=== PATIENT | female | born 1940 | race Hispanic/Latino ===

== ENCOUNTER → 2017-05-06 | Outpatient (CLI) | payer OTHER | END | disposition home or self-care (01) | LOC: RAH 10:18 | PROVIDERS: ATTEND Internal Medicine | DX: Z12.31 Encounter for screening mammogram for malignant neoplasm of breast (principal) | CPT/HCPCS: 77067 ==

== ENCOUNTER → 2018-05-08 | Outpatient (CLI) | payer OTHER | END | disposition home or self-care (01) | LOC: RAH 14:22 | PROVIDERS: ATTEND Internal Medicine | DX: I77.9 Disorder of arteries and arterioles, unspecified (principal) | CPT/HCPCS: 93880 ==

== ENCOUNTER 2018-06-29 17:32 | Emergency (ER) | payer OTHER ==
[2018-06-29] MEDS ORDERED: DEXAMETHASONE SOD PHOSPHATE 10MG/ML 1ML VIAL ONE (18:32)
[2018-06-29] MEDS ORDERED: KETOROLAC TROMETHAMINE 30MG/ML ONE (18:33)
[2018-06-29] MEDS ORDERED: LIDOCAINE 5% TOPICAL PATCH TP ONE (18:33)
== END 2018-06-29 19:21 | disposition home or self-care (01) ==
LOC: EDH 17:32
DX: M54.32 Sciatica, left side (principal); I10 Essential (primary) hypertension; Z90.710 Acquired absence of both cervix and uterus
CPT/HCPCS: 93971; 96372 ×2; 99284; J1100; J1885

== ENCOUNTER → 2018-07-04 | Outpatient (CLI) | payer OTHER | END | disposition home or self-care (01) | LOC: RAH 15:50 | PROVIDERS: ATTEND Internal Medicine | DX: M48.061 Spinal stenosis, lumbar region without neurogenic claudication (principal); M25.562 Pain in left knee | CPT/HCPCS: 72100; 73562 ==

== ENCOUNTER → 2018-09-09 | Outpatient (CLI) | payer OTHER | END | disposition home or self-care (01) | LOC: RAH 08:45 | PROVIDERS: ATTEND Internal Medicine | DX: M17.12 Unilateral primary osteoarthritis, left knee (principal); S83.242A Other tear of medial meniscus, current injury, left knee, initial encounter; M22.42 Chondromalacia patellae, left knee; M25.462 Effusion, left knee; M79.89 Other specified soft tissue disorders; X58.XXXA Exposure to other specified factors, initial encounter; Y93.89 Activity, other specified; Y92.89 Other specified places as the place of occurrence of the external cause; Y99.8 Other external cause status | CPT/HCPCS: 73721 ==

== ENCOUNTER → 2019-07-02 | Outpatient (CLI) | payer OTHER | END | disposition home or self-care (01) | LOC: RAH 14:36 | PROVIDERS: ATTEND Internal Medicine | DX: Z12.31 Encounter for screening mammogram for malignant neoplasm of breast (principal) | CPT/HCPCS: 77067 ==

== ENCOUNTER 2021-05-16 06:02 | Day surgery (SDC) | payer OTHER ==
[2021-05-11 11:55] LABS: BASOPHILS % (AUTO) 0.7 % (0.0-5.0); EOSINOPHILS % (AUTO) 2.7 % (0.0-8.0); HEMATOCRIT 41.4 % (36-48); MEAN CORPUSCULAR HEMOGLOBIN 30.8 pg (27.0-33.0); MEAN CORPUSCULAR HGB CONC 32.9 g/dL (32.0-36.0); MEAN CORPUSCULAR VOLUME 93.9 fL (79-99); MONOCYTES % (AUTO) 5.5 % (3.0-13.0); NEUTROPHILS % (AUTO) 60.8 % (40.0-77.0); PLATELET COUNT (AUTO) 255 K/uL (130-400); RED BLOOD CELL COUNT(AUTO) 4.41 MIL/uL (4.00-5.50); RED CELL DISTRIBUTION WIDTH 12.8 % (11.0-15.5)
[2021-05-11 12:10] LABS: CREATININE 0.8 mg/dL (0.5-1.5); POTASSIUM 4.2 mmol/L (3.5-5.1)
[~2021-05-16] VITALS: Ht 149.9 cm; Wt 66.3 kg
[2021-05-16] VITALS (18 sets, daily range): BP systolic 112–158; BP diastolic 57–98
[~2021-05-16 06:02] MED LIST: AEC81 PO; AMIL5TAB8 PO; AMLO2.5T4 PO; CITA10TA89 PO; ERGO500093 PO; IRBE300T18 PO; METO50TA18 PO; MONT-39 PO; OXYB10TA30 PO; ROSU10TA28 PO
[2021-05-16] MEDS ORDERED: LACTATED RINGERS 1000ML 1,000 ML IV ONE (06:31)
[2021-05-16] MEDS ORDERED: BACITRACIN 28.4 GM OINT TP ONE (06:39)
[2021-05-16] MEDS ORDERED: LIDOCAINE 1%-EPI 1:100,000 20 ML VIAL IJ ONE (06:39)
[2021-05-16] MEDS ORDERED: LIDOCAINE HCL 1% 20 ML VIAL ONE (06:42)
[2021-05-16] MEDS ORDERED: EPINEPHRINE PF 1MG AMP ONE (06:42)
[2021-05-16] MEDS ORDERED: ROCURONIUM 10MG/1ML SYR 10 MG/ML ML ONE (06:59)
[2021-05-16] MEDS ORDERED: GLYCOPYRROLATE 1 MG/5 ML SYRINGE ONE (06:59)
[2021-05-16] MEDS ORDERED: PROPOFOL 10 MG/ML 20ML VIAL IV ONE (06:59)
[2021-05-16] MEDS ORDERED: FENTANYL CITRATE PF 50 MCG/1 ML 2ML VIAL ONE ×2 (06:59→07:34)
[2021-05-16] MEDS ORDERED: FAMOTIDINE 20MG VIAL IV ONE (07:07)
[2021-05-16] MEDS ORDERED: ONDANSETRON 4MG INJ ONE (07:26)
[2021-05-16] MEDS: EPINEPHRINE 1 MG/ML 30ML VIAL IJ ONE ×2 (07:30→07:45)
[2021-05-16] MEDS ORDERED: LABETALOL 20MG SYG IV ONE (07:34)
[2021-05-16] MEDS ORDERED: DEXAMETHASONE SOD PHOSPHATE 10MG/ML 1ML VIAL ONE (08:47)
[2021-05-16] MEDS ORDERED: NEOSTIGMINE 5MG/5ML SYR IV ONE (09:11)
== END 2021-05-16 11:10 | disposition home or self-care (01) ==
LOC: DAH 06:02
PROVIDERS: ATTEND Otolaryngology Plastic Surgery within the Head & Neck
DX: H70.12 Chronic mastoiditis, left ear (principal); Z20.822 Contact with and (suspected) exposure to COVID-19; H72.92 Unspecified perforation of tympanic membrane, left ear; I10 Essential (primary) hypertension; I25.10 Atherosclerotic heart disease of native coronary artery without angina pectoris; Z79.82 Long term (current) use of aspirin; Z79.01 Long term (current) use of anticoagulants; Z79.899 Other long term (current) drug therapy; Z98.890 Other specified postprocedural states; Z90.710 Acquired absence of both cervix and uterus
CPT/HCPCS: 36415; 69310; 69642; 80048; 85025; 87635; A4215; A4221; A4222; A4223; A4452; A4649; A4663; A6446; C9803; J0171; J1100; J2405; J2704; J2710; J3010 ×2; J3490 ×2; J7040; J7120

== ENCOUNTER 2021-06-07 17:11 | Inpatient (IN) | payer OTHER ==
[~2021-06-07] VITALS: Ht 149.9 cm; Wt 70.8 kg
[2021-06-07 18:15] LABS: BASOPHILS % (AUTO) 0.2 % (0.0-5.0); HEMATOCRIT 37.9 % (36-48); MEAN CORPUSCULAR HEMOGLOBIN 30.3 pg (27.0-33.0); MEAN CORPUSCULAR HGB CONC 33.8 g/dL (32.0-36.0); MEAN CORPUSCULAR VOLUME 89.8 fL (79-99); MONOCYTES % (AUTO) 6.5 % (3.0-13.0); NEUTROPHILS % (AUTO) 85.9 % (40.0-77.0); PLATELET COUNT (AUTO) 184 K/uL (130-400); RED BLOOD CELL COUNT(AUTO) 4.22 MIL/uL (4.00-5.50); WHITE BLOOD COUNT (AUTO) 12.4 K/uL (4.8-10.8)
[2021-06-07 18:28] LABS: CREATININE 1.1 mg/dL (0.5-1.5)
[2021-06-07 18:32] LABS: ALBUMIN 2.9 g/dL (3.5-5.0); BILIRUBIN,TOTAL 0.6 mg/dL (0.2-1.0); TOTAL PROTEIN, SERUM 7.2 g/dL (6.0-8.3)
[2021-06-07] MEDS ORDERED: ACETAMINOPHEN 500 MG TABLET ONE (18:39)
[2021-06-07] MEDS ORDERED: 0.9%NACL 1000ML 1,000 ML IV ONE ×2 (18:39→19:00)
[2021-06-07] MEDS ORDERED: ACETAMINOPHEN 500 MG TABLET PO ONE (19:00)
[2021-06-07 19:08] LABS: APPEARANCE,URINE Cloudy (CLEAR); BILIRUBIN,URINE Negative (NEGATIVE); COLOR,URINE Yellow (YELLOW); GLUCOSE, URINE (UA) Negative (NEGATIVE); KETONES,URINE Trace mg/dL (NEGATIVE); LEUKOCYTE ESTERASE ,URINE Moderate (NEGATIVE); NITRATE,URINE Positive (NEGATIVE); OCCULT BLOOD,URINE Small (NEGATIVE); PH,URINE 5.5 (5.0-8.0); PROTEIN,URINE POS 2+ mg/dL (NEGATIVE)
[2021-06-07 19:19] LABS: BACTERIA,URINE Moderate /HPF (None Seen)
[2021-06-07 19:20] LABS: SQUAMOUS EPITHELIAL CELL,UR Few /HPF (0-2)
[2021-06-07] MEDS ORDERED: CEFTRIAXONE 1G VIAL ONE (20:58)
[2021-06-07] MEDS: CEFTRIAXONE 1G VIAL IVP SCH (21:00)
[2021-06-07] MEDS ORDERED: DIPHENHYDRAMINE HCL 25 MG CAPSULE PO PRN (23:00)
[2021-06-07] MEDS ORDERED: NITROGLYCERIN 0.4 MG SL TAB SL PRN (23:00)
[2021-06-07] MEDS ORDERED: GLUCAGON 1MG KIT 1 MG ML IM PRN (23:00)
[2021-06-07] MEDS ORDERED: DEXTROSE 50%-WATER 50 ML DISP.SYRIN IV PRN (23:00)
[2021-06-07] MEDS ORDERED: ACETAMINOPHEN 325 MG TAB PO PRN (23:00)
[2021-06-07] MEDS ORDERED: KCL 20 MEQ ERTAB PO PRN (23:00)
[2021-06-07] MEDS ORDERED: DiphenhydrAMINE HCL 50 MG/ML VIAL IV PRN (23:00)
[2021-06-07] MEDS ORDERED: MAG/ALUM/SIMETH 30 ML UDCUP PO PRN (23:00)
[2021-06-07] MEDS ORDERED: ONDANSETRON 4MG INJ IV PRN (23:00)
[2021-06-07] MEDS ORDERED: POTASSIUM CHLORIDE 20MEQ/100ML 100 ML IV PRN ×2 (23:00)
[2021-06-07] MEDS ORDERED: LACTULOSE 20 GM/30 ML UDCUP PO PRN (23:00)
[2021-06-07] MEDS ORDERED: LIDOCAINE HCL-MPF 1% 2ML VIAL IV PRN ×2 (23:00)
[2021-06-08] MEDS: 0.9%NACL 1000ML 1,000 ML IV SCH ×3 (00:58→23:00)
[2021-06-08 05:21] LABS: HEMATOCRIT 33.5 % (36-48); MEAN CORPUSCULAR HEMOGLOBIN 30.4 pg (27.0-33.0); MEAN CORPUSCULAR HGB CONC 33.4 g/dL (32.0-36.0); MEAN CORPUSCULAR VOLUME 90.8 fL (79-99); RED BLOOD CELL COUNT(AUTO) 3.69 MIL/uL (4.00-5.50); RED CELL DISTRIBUTION WIDTH 13.1 % (11.0-15.5); WHITE BLOOD COUNT (AUTO) 11.7 K/uL (4.8-10.8)
[2021-06-08 05:26] VITALS: BP 152/74
[2021-06-08 05:30] LABS: POTASSIUM 3.6 mmol/L (3.5-5.1)
[2021-06-08] MEDS: INSULIN HUMULIN R 100 UNIT/ML 3ML SQ SCH ×4 (06:18→21:00)
[2021-06-08] MEDS: POTASSIUM CHLORIDE 10% ELIXIR 20 MEQ/15 ML UDCUP PO PRN ×2 (06:22→08:31)
[2021-06-08 08:00] VITALS: BP 148/68
[2021-06-08] MEDS: CEFTRIAXONE 1G VIAL IVP SCH (08:22)
[2021-06-08] MEDS: AMLODIPINE 2.5 MG TAB PO SCH ×2 (08:25→21:36)
[2021-06-08] MEDS: METOPROLOL TARTRATE 25 MG TAB PO SCH ×2 (08:25→21:36)
[2021-06-08] MEDS: LEVOFLOXACIN 500 MG/D5W 100 ML 100 ML IV SCH (08:25)
[2021-06-08] MEDS: DOXYCYCLINE 100MG+NS 250ML IV SCH ×2 (08:25→21:36)
[2021-06-08] MEDS: ATORVASTATIN 20 MG TABLET PO SCH (08:25)
[2021-06-08] MEDS ORDERED: SOLI10TA7 PO (08:28)
[2021-06-08] MEDS: ENOXAPARIN SODIUM 30 MG/0.3 ML SQ SCH (08:30)
[2021-06-08 12:00] VITALS: BP 130/67
[2021-06-08 16:00] VITALS: BP 112/61
[2021-06-08 20:39] VITALS: BP 147/76
[2021-06-08] MEDS ORDERED: 0.9% NACL 250ML 250 ML ONE (21:30)
[2021-06-08] MEDS: MONTELUKAST SODIUM 10 MG TAB PO SCH (21:36)
[2021-06-08] MEDS: CITALOPRAM 20 MG TABLET PO SCH (21:36)
[2021-06-08] MEDS: NEOMYCIN/POLYMYXIN/HC OTIC SUSP 10ML BOTTLE AD SCH (21:37)
[2021-06-08] MEDS: ACETAMINOPHEN 325 MG TAB PO PRN (22:27)
[2021-06-09 00:58] VITALS: BP 141/73
[2021-06-09 04:32] VITALS: BP 128/59
[2021-06-09 05:15] LABS: CREATININE 0.8 mg/dL (0.5-1.5); HEMATOCRIT 31.7 % (36-48); MEAN CORPUSCULAR HEMOGLOBIN 30.9 pg (27.0-33.0); MEAN CORPUSCULAR HGB CONC 34.4 g/dL (32.0-36.0); MEAN CORPUSCULAR VOLUME 89.8 fL (79-99); POTASSIUM 3.8 mmol/L (3.5-5.1); RED BLOOD CELL COUNT(AUTO) 3.53 MIL/uL (4.00-5.50); RED CELL DISTRIBUTION WIDTH 13.2 % (11.0-15.5); WHITE BLOOD COUNT (AUTO) 9.2 K/uL (4.8-10.8)
[2021-06-09] MEDS: INSULIN HUMULIN R 100 UNIT/ML 3ML SQ SCH ×4 (06:37→21:00)
[2021-06-09 08:00] VITALS: BP 149/65
[2021-06-09] MEDS: AMLODIPINE 2.5 MG TAB PO SCH (09:54)
[2021-06-09] MEDS: ATORVASTATIN 20 MG TABLET PO SCH (09:54)
[2021-06-09] MEDS: LEVOFLOXACIN 500 MG/D5W 100 ML 100 ML IV SCH (09:54)
[2021-06-09] MEDS: METOPROLOL TARTRATE 25 MG TAB PO SCH ×2 (09:54→21:48)
[2021-06-09] MEDS: ENOXAPARIN SODIUM 30 MG/0.3 ML SQ SCH (09:55)
[2021-06-09] MEDS: NEOMYCIN/POLYMYXIN/HC OTIC SUSP 10ML BOTTLE AD SCH ×3 (09:55→21:47)
[2021-06-09] MEDS: 0.9%NACL 1000ML 1,000 ML IV SCH (11:50)
[2021-06-09 12:00] VITALS: BP 135/66
[2021-06-09 16:00] VITALS: BP 134/67
[2021-06-09] MEDS: ACETAMINOPHEN 325 MG TAB PO PRN (16:34)
[2021-06-09 20:45] VITALS: BP 152/70
[2021-06-09] MEDS: AMLODIPINE 5 MG TAB PO SCH (21:47)
[2021-06-09] MEDS: CITALOPRAM 20 MG TABLET PO SCH (21:47)
[2021-06-09] MEDS: MONTELUKAST SODIUM 10 MG TAB PO SCH (21:48)
[2021-06-09] MEDS: LOSARTAN 50 MG TABLET PO SCH (21:48)
[2021-06-10] MEDS: 0.9%NACL 1000ML 1,000 ML IV SCH ×2 (01:11→13:56)
[2021-06-10 05:14] VITALS: BP 139/71
[2021-06-10] MEDS: INSULIN HUMULIN R 100 UNIT/ML 3ML SQ SCH ×2 (07:30→11:30)
[2021-06-10] MEDS: LEVOFLOXACIN 500 MG/D5W 100 ML 100 ML IV SCH (07:36)
[2021-06-10 08:00] VITALS: BP 125/64
[2021-06-10] MEDS ORDERED: LEVO750T46 PO (08:37)
[2021-06-10] MEDS: ATORVASTATIN 20 MG TABLET PO SCH (10:00)
[2021-06-10] MEDS: LOSARTAN 50 MG TABLET PO SCH (10:00)
[2021-06-10] MEDS: AMLODIPINE 5 MG TAB PO SCH (10:00)
[2021-06-10] MEDS: METOPROLOL TARTRATE 25 MG TAB PO SCH (10:00)
[2021-06-10] MEDS: ENOXAPARIN SODIUM 30 MG/0.3 ML SQ SCH (10:00)
[2021-06-10] MEDS: NEOMYCIN/POLYMYXIN/HC OTIC SUSP 10ML BOTTLE AD SCH ×2 (10:07→12:55)
[2021-06-10 12:00] VITALS: BP 144/66
== END 2021-06-10 15:30 | disposition home or self-care (01) | DRG 690 ==
LOC: EDH 17:11 → OBSVTOIN 22:48 → EDHIP 22:48 → 3BH 23:46
PROVIDERS: ADMIT Internal Medicine; ATTEND Internal Medicine
DX: N39.0 Urinary tract infection, site not specified (principal); F32.1 Major depressive disorder, single episode, moderate; R78.81 Bacteremia; N18.2 Chronic kidney disease, stage 2 (mild); I13.10 Hypertensive heart and chronic kidney disease without heart failure, with stage 1 through stage 4 chronic kidney disease, or unspecified chronic kidney disease; Z20.822 Contact with and (suspected) exposure to COVID-19; Z79.899 Other long term (current) drug therapy; E11.42 Type 2 diabetes mellitus with diabetic polyneuropathy; E11.22 Type 2 diabetes mellitus with diabetic chronic kidney disease; I25.10 Atherosclerotic heart disease of native coronary artery without angina pectoris; B96.20 Unspecified Escherichia coli [E. coli] as the cause of diseases classified elsewhere; Z90.710 Acquired absence of both cervix and uterus; E78.5 Hyperlipidemia, unspecified; F41.9 Anxiety disorder, unspecified; K21.9 Gastro-esophageal reflux disease without esophagitis; Z82.49 Family history of ischemic heart disease and other diseases of the circulatory system; Z82.5 Family history of asthma and other chronic lower respiratory diseases; Z83.3 Family history of diabetes mellitus; Z82.0 Family history of epilepsy and other diseases of the nervous system; Z82.3 Family history of stroke; M15.9 Polyosteoarthritis, unspecified
CPT/HCPCS: 36415; 70480; 71045; 80048; 80053; 81001; 82948; 83605; 85025; 85027; 87040; 87077; 87088; 87186; 87635; 87804; 93005; C9803; G0378; J0696; J1650; J1956; J3490; J7030; J7050

== ENCOUNTER → 2021-06-16 | Outpatient (CLI) | payer OTHER ==
[~2021-06-16] MED LIST changes: -AMIL5TAB8 PO; +LEVO750T46 PO; +SOLI10TA7 PO
[2021-06-16 12:42] LABS: ALBUMIN 3.1 g/dL (3.5-5.0); BILIRUBIN,TOTAL 0.3 mg/dL (0.2-1.0); POTASSIUM 4.7 mmol/L (3.5-5.1); TOTAL PROTEIN, SERUM 7.4 g/dL (6.0-8.3)
== END | disposition home or self-care (01) ==
LOC: LAB 09:38
PROVIDERS: ATTEND Internal Medicine Cardiovascular Disease
DX: E78.2 Mixed hyperlipidemia (principal); E56.9 Vitamin deficiency, unspecified; Z79.899 Other long term (current) drug therapy
CPT/HCPCS: 36415; 80053; 80061; 82306

== ENCOUNTER → 2023-05-20 | Outpatient (CLI) | payer OTHER ==
[~2023-05-20] MED LIST changes: -IRBE300T18 PO; +IRBE300T26 PO; -LEVO750T46 PO; +LEVO750T68 PO
[2023-05-20 16:53] LABS: ALBUMIN 3.7 g/dL (3.5-5.0); BILIRUBIN,TOTAL 0.5 mg/dL (0.2-1.0); CREATININE 0.9 mg/dL (0.5-1.0); MAGNESIUM 2.2 mg/dL (1.80-2.40); POTASSIUM 3.6 mmol/L (3.5-5.1); TOTAL PROTEIN, SERUM 7.3 g/dL (6.0-8.3)
== END | disposition home or self-care (01) ==
LOC: LAB 13:26
PROVIDERS: ATTEND Internal Medicine Cardiovascular Disease
DX: I25.10 Atherosclerotic heart disease of native coronary artery without angina pectoris (principal); E78.5 Hyperlipidemia, unspecified
CPT/HCPCS: 36415; 80053; 80061; 83735

== ENCOUNTER → 2023-12-04 | Outpatient (CLI) | payer OTHER ==
[~2023-12-04] MED LIST changes: -ROSU10TA28 PO; +ROSU10TA72 PO
[2023-12-04 16:51] LABS: CREATININE 1.1 mg/dL (0.5-1.0); POTASSIUM 4.6 mmol/L (3.5-5.1)
== END | disposition home or self-care (01) ==
LOC: LAB 13:30
PROVIDERS: ATTEND Internal Medicine Cardiovascular Disease
DX: I10 Essential (primary) hypertension (principal)
CPT/HCPCS: 36415; 80048

== ENCOUNTER → 2024-09-24 | Outpatient (CLI) | payer OTHER ==
--- NOTE | 2024-10-05 10:40 | HMCIMG ---
CLINICAL INDICATION: Unspecified menopausal or perimenopausal disorder COMPARISON: None provided TECHNIQUE: Bone densitometry is performed of the lumbar spine and left hip. FINDINGS: Total BMD of lumbar spine is 0.914 g/cm2 with a T-score of -1.2 and Z-score is 1.6. Total BMD of left hip is 0.834 g/cm2 with a T-score of -1.0 and Z-score is 1.3. FRAX SCORE: The 10 year fracture risk for a major osteoporotic fracture and hip fracture 9.4% IMPRESSION: 1. Osteopenia lumbar spine 2. Osteopenia left hip 3. I would recommend follow-up in 13 months World Health Organization criteria for BMD interpretation classify patients as Normal (T-score at or above -1.0), Osteopenic (T-score between -1.0 and -2.5), or Osteoporotic (T-score at or below -2.5). FRAX SCORE: A. All treatment decisions require clinical judgment and consideration of individual patient factors, including patient preferences, comorbidities, previous drug use, risk factors not captured in the FRAX model (e.g., frailty, falls, vitamin D deficiency, increased bone turnover, interval significant decline in bone density) and possible [id number]-estimation of fracture risk by FRAX. B. In addition, the NOF Guide recommends that FDA-approved medical therapies be considered in postmenopausal women and men age greater than or equal to 50 years with a: i. Hip or vertebral (clinical or morphometric) fracture. ii. T-score of less than or equal to -2.5 at the spine or hip. iii. Ten-year fracture probability by FRAX of greater than or equal to 3% for hip fracture of greater than or equal to 20% for major osteoporotic fracture.
== END | disposition home or self-care (01) ==
LOC: RAH 10:14
PROVIDERS: ATTEND Internal Medicine
DX: M85.89 Other specified disorders of bone density and structure, multiple sites (principal); N95.9 Unspecified menopausal and perimenopausal disorder
CPT/HCPCS: 77080